=== PATIENT | female | born 2000 | race African-American/Black ===

== ENCOUNTER 2021-03-18 23:57 | Inpatient (IN) ==
[2021-03-19] MEDS ORDERED: MEPERIDINE 50 MG/1 ML VIAL IV PRN (00:10)
[2021-03-19] MEDS ORDERED: BUTORPHANOL 2 MG/ML VIAL IV PRN (00:10)
[2021-03-19] MEDS ORDERED: LACTATED RINGERS 500 ML IV PRN (00:10)
[2021-03-19] MEDS ORDERED: ONDANSETRON 4 MG/2 ML VIAL IV PRN (00:10)
[2021-03-19 00:49] LABS: Basophils % 0.3 % (0.0-0.8); Eosinophils % 0.5 % (0.00-10.9); Hematocrit 36.7 VOL% (35.7-47.0); Hemoglobin 11.8 GM/DL (12.0-16.0); Immature Granulocytes % 0.8 %; Immature Granulocytes Absolute 0.06 #; Lymphocytes # 2.2 10*3/uL (1.4-4.0); Lymphocytes % 28.4 % (21.3-54.2); Mean Corpuscular HGB Conc 32.2 GM/DL (32-36); Mean Corpuscular Volume 77.8 FL (87-102); Mean Platelet Volume 9.5 FL (9.6-12.0); Monocytes % 12.1 % (1.7-12.7); Neutrophils % 57.9 % (38.7-73.9); Platelet Count 395 T/CUMM (130-400); Red Blood Count 4.72 MC/CUMM (3.8-5.5); Red Cell Distribution Width 15.4 % (9.3-17.3); White Blood Count 7.8 T/CUMM (4-12)
[2021-03-19] MEDS: LABETALOL 100 MG TABLET PO SCH ×3 (01:06→20:58)
[2021-03-19] MEDS: ALUMINUM/MAGNES/SIMETH MAX STR 30 ML UDCUP PO PRN ×2 (01:17→14:54)
[2021-03-19 01:35] LABS: Alanine Aminotransferase 17 U/L (13-56); Albumin 3.4 G/DL (3.4-5.0); Alkaline Phosphatase 245 U/L (45-117); Aspartate Amino Transferase 18 U/L (0-37); Bilirubin,Total < 0.39 MG/DL (0.20-1.00); Blood Urea Nitrogen 8 MG/DL (7-18); Calcium 9.1 MG/DL (8.5-10.1); Carbon Dioxide 24 MMOL/L (21-32); Estimated Glom Filtration Rate 210 ML/MIN; Glucose 75 MG/DL (74-106); Osmolality,Calculated 269.8 MOS/KG (273-304); Potassium 3.8 MMOL/L (3.5-5.1); Sodium 137 MMOL/L (136-145); Total Protein 7.7 G/DL (6.4-8.2)
[2021-03-19] MEDS: LACTATED RINGERS 1,000 ML IV PRN (07:56)
[2021-03-19 10:17] LABS: INR 0.9; PT Patient Result 10.7 SECS (10.5-12.0); Partial Thromboplastin Time 24.8 SECS (23.9-33.8)
[2021-03-19 11:07] LABS: Protein/Creatinine Ratio,Urine 0.1 RATIO
[2021-03-20] MEDS ORDERED: CITRIC ACID/SODIUM CITRATE 30 ML UDCUP PO ONE (07:42)
[2021-03-20] MEDS ORDERED: FAMOTIDINE 20 MG/2 ML VIAL IV ONE (07:42)
[2021-03-20] MEDS ORDERED: ceFAZolin 3,000 MG in SYRINGE 1 EACH IV ONE (07:42)
[2021-03-20] MEDS ORDERED: PHENYLEPHRINE 1 MG/10 ML SYRINGE IV ONE (08:11)
[2021-03-20] MEDS ORDERED: ONDANSETRON 4 MG/2 ML VIAL ONE (08:11)
[2021-03-20] MEDS ORDERED: BUPIVACAINE SPINAL 0.75% 2 ML AMP SPINAL ONE (08:11)
[2021-03-20] MEDS ORDERED: OXYTOCIN/LR 30 UNIT/1,000 ML BAG IV ONE (08:15)
[2021-03-20] MEDS ORDERED: OXYTOCIN 10 UNIT/ML VIAL IM ONE (08:15)
[2021-03-20] MEDS ORDERED: miSOPROStoL 200 MCG TABLET ONE (08:17)
[2021-03-20] MEDS ORDERED: TRANEXAMIC ACID 1,000 MG/10 ML VIAL ONE (08:17)
[2021-03-20] MEDS ORDERED: METHYLERGONOVINE 0.2 MG/1 ML AMP ONE (08:18)
[2021-03-20] MEDS ORDERED: SODIUM CHLORIDE 0.9% 0 ML IV ONE (08:18)
[2021-03-20] MEDS ORDERED: CARBOPROST TROMETHAMINE 250 MCG/ML AMP IM ONE (08:18)
[2021-03-20] MEDS: LACTATED RINGERS 1,000 ML IV PRN (08:25)
[2021-03-20] MEDS: LABETALOL 100 MG TABLET PO SCH (09:00)
[2021-03-20] MEDS ORDERED: OXYTOCIN/LR 20 UNIT/1,000 ML BAG IV ONE ×2 (09:23→14:00)
[2021-03-20] MEDS ORDERED: ACETAMINOPHEN INJ 1,000 MG/100 ML VIAL IV ONE (09:31)
[2021-03-20] MEDS ORDERED: KETOROLAC 30 MG/1 ML VIAL ONE (09:31)
[2021-03-20] MEDS ORDERED: fentaNYL 100 MCG/2 ML VIAL ONE (09:40)
[2021-03-20 09:52] LABS: Cord Venous Blood HCO3 21.7 MMOL/L; Cord Venous Blood PCO2 50.6 MMHG
[2021-03-20] MEDS ORDERED: diphenhydrAMINE CAP 25 MG CAPSULE PO ONE ×2 (12:31→13:00)
[2021-03-20] MEDS ORDERED: SIMETHICONE CHEW 80 MG TABLET PO PRN (14:00)
[2021-03-20] MEDS ORDERED: ACETAMINOPHEN 325 MG TABLET PO PRN (14:00)
[2021-03-20] MEDS ORDERED: LACTATED RINGERS 1,000 ML IV SCH (14:00)
[2021-03-20] MEDS ORDERED: ONDANSETRON 4 MG/2 ML VIAL IV PRN (14:00)
[2021-03-20] MEDS ORDERED: RHO(D) IMMUNE GLOBULIN 300 MCG SYRINGE IM ONE (14:00)
[2021-03-20] MEDS ORDERED: MAGNESIUM HYDROXIDE SUSP 30 ML UDCUP PO PRN (14:00)
[2021-03-20] MEDS: KETOROLAC 30 MG/1 ML VIAL IV SCH ×2 (14:54→20:52)
[2021-03-20] MEDS: ACETAMINOPHEN 500 MG TABLET PO SCH ×2 (14:54→20:52)
[2021-03-20 15:31] LABS: Albumin 2.8 G/DL (3.4-5.0); Bilirubin,Direct 0.16 MG/DL (0.0-0.20); Bilirubin,Total 0.5 MG/DL (0.20-1.00); Calcium 9.1 MG/DL (8.5-10.1); Osmolality,Calculated 274.4 MOS/KG (273-304); Potassium 3.7 MMOL/L (3.5-5.1); Total Protein 6.5 G/DL (6.4-8.2); Uric Acid 4.9 MG/DL (2.6-6.0)
[2021-03-20] MEDS ORDERED: diphenhydrAMINE 50 MG/1 ML VIAL IV PRN (16:15)
[2021-03-20] MEDS ORDERED: diphenhydrAMINE 50 MG/1 ML VIAL ONE (16:17)
[2021-03-20 18:19] LABS: Basophils % 0.2 % (0.0-0.8); Eosinophils % 0.3 % (0.00-10.9); Hematocrit 32.1 VOL% (35.7-47.0); Hemoglobin 9.9 GM/DL (12.0-16.0); Immature Granulocytes % 0.4 %; Immature Granulocytes Absolute 0.04 #; Lymphocytes # 1.5 10*3/uL (1.4-4.0); Lymphocytes % 14.3 % (21.3-54.2); Mean Corpuscular HGB Conc 30.8 GM/DL (32-36); Mean Corpuscular Volume 81.3 FL (87-102); Mean Platelet Volume 9.4 FL (9.6-12.0); Monocytes % 8.6 % (1.7-12.7); Neutrophils % 76.2 % (38.7-73.9); Platelet Count 301 T/CUMM (130-400); Red Blood Count 3.95 MC/CUMM (3.8-5.5); Red Cell Distribution Width 15.7 % (9.3-17.3); White Blood Count 10.4 T/CUMM (4-12)
[2021-03-20] MEDS: DOCUSATE SODIUM 100 MG CAPSULE PO SCH (20:51)
[2021-03-21] MEDS: ACETAMINOPHEN 500 MG TABLET PO SCH (03:09)
[2021-03-21] MEDS: KETOROLAC 30 MG/1 ML VIAL IV SCH (03:10)
[2021-03-21 05:36] LABS: Basophils % 0.3 % (0.0-0.8); Eosinophils # 0.1 10*3/uL (0.0-0.87); Eosinophils % 0.7 % (0.00-10.9); Hematocrit 31.2 VOL% (35.7-47.0); Hemoglobin 9.6 GM/DL (12.0-16.0); Immature Granulocytes % 0.4 %; Immature Granulocytes Absolute 0.03 #; Lymphocytes # 1.7 10*3/uL (1.4-4.0); Lymphocytes % 23.7 % (21.3-54.2); Mean Corpuscular HGB Conc 30.8 GM/DL (32-36); Mean Corpuscular Volume 80.6 FL (87-102); Mean Platelet Volume 9.2 FL (9.6-12.0); Neutrophils % 61.9 % (38.7-73.9); Platelet Count 288 T/CUMM (130-400); Red Blood Count 3.87 MC/CUMM (3.8-5.5); Red Cell Distribution Width 15.6 % (9.3-17.3); White Blood Count 7.3 T/CUMM (4-12)
[2021-03-21 06:00] LABS: Hypochromasia 1+; Microcytosis 1+
[2021-03-21 06:01] LABS: Platelet Estimate Normal; Polychromasia Slight
[2021-03-21] MEDS: DOCUSATE SODIUM 100 MG CAPSULE PO SCH ×2 (08:01→21:09)
[2021-03-21] MEDS: METOCLOPRAMIDE 10 MG TABLET PO SCH ×3 (08:01→23:38)
[2021-03-21] MEDS: MULTIVITAMIN (PRENATAL) TABLET PO SCH (08:01)
[2021-03-21] MEDS: IBUPROFEN 800 MG TABLET PO PRN ×2 (08:01→15:10)
[2021-03-21] MEDS: FERROUS SULFATE 325 MG TABLET PO SCH ×2 (10:11→21:09)
[2021-03-21] MEDS ORDERED: BISACODYL 10 MG SUPP RECTAL PRN (23:20)
[2021-03-22] MEDS: IBUPROFEN 800 MG TABLET PO PRN ×2 (01:37→08:16)
[2021-03-22] MEDS: MULTIVITAMIN (PRENATAL) TABLET PO SCH (08:17)
[2021-03-22] MEDS: DOCUSATE SODIUM 100 MG CAPSULE PO SCH (08:17)
[2021-03-22] MEDS: FERROUS SULFATE 325 MG TABLET PO SCH (08:17)
[2021-03-22] MEDS ORDERED: ALUMINUM/MAGNES/SIMETH MAX STR 30 ML UDCUP PO PRN (08:35)
[2021-03-22] MEDS: METOCLOPRAMIDE 10 MG TABLET PO SCH (10:03)
[2021-03-22 12:55] VITALS: BP 139/83
[2021-03-22] MEDS ORDERED: DIPH/TET/ACEL PERT BOOSTER VACCINE 0.5 ML VIAL IM ONE (13:46)
== END 2021-03-22 14:40 | disposition home or self-care (01) | DRG 787 ==
LOC: N.LD 23:57 → N.OB 03-20 15:02
PROVIDERS: ADMIT Obstetrics & Gynecology; ATTEND Obstetrics & Gynecology
PROC: LDCSECT (ICD-10-PCS; 2021-03-20 08:55)